=== PATIENT | male | born 1945 | race Caucasian/White ===

== ENCOUNTER → 2020-01-13 13:48 | Outpatient (CLI) | payer OTHER, SELFPAY ==
--- NOTE | 2020-01-13 | DI.ECHO.S_ITS ---
[facility] +---------+ : : [address] : : : : [address] : : : : [place], : : : : [place] [id number] : : : : Phone: [phone] + [facility]-0966 Echocardiogram Report + + :Name: KERRY BERNAL Study Date: 01/13/2020 Height: 73 in : :[facility] Exam Location: COUNT INCLUDES THE [facility] Weight: 212 lb : : Gender: Male BSA: 2.2 m2 : :: 1945 Age: 74 yrs BP: 140/80 mmHg: :Reason For Study: Post procedural state : :Ordering Physician: Mary Ellen Jaquez : :Chloé Performed By: Rebecca Page : :Referring: MARY ELLEN LUEVANO : + + Interpretation Summary 1) Normal left ventricular size, thickness, and systolic function (EF 60-65%). 2) The right ventricle is moderately dilated. Right ventricular systolic function is mildly reduced. 3) Severe biatrial enlargement. 4) Repaired mitral valve with trace mitral regurgitation 5) The right ventricular systolic pressure is estimated to be at least 29 mmHg based on an estimated right atrial pressure of 8 mm Hg. 6) Compared to the Echo done 08/25/2017, RV is more enlarged and has mildly reduced systolic function. Procedure: A two-dimensional transthoracic echocardiogram with color flow and Doppler was performed. The study quality was technically adequate. Comparison is made with the echocardiogram of 08/25/2017. The heart rate ranged between 59-97 bpm during the study. Left Ventricle: The left ventricle is normal in size and wall thickness. The ejection fraction is estimated to be 60-65%. Left ventricular systolic function is normal. There are no obvious focal wall motion abnormalities noted but poor endocardial definition reduces the sensitivity for the detection of such. Diastolic function could not be accurately assessed due to unobtainable data. Right Ventricle: The right ventricle is moderately dilated. Right ventricular systolic function is mildly reduced. Atria: Both atria are severely dilated. There is no Doppler evidence for an interatrial shunt. Mitral Valve: History of mitral valve repair. There is trace mitral regurgitation. Aortic Valve: The aortic valve is trileaflet. The aortic valve is mildly calcified. No aortic regurgitation is present. Tricuspid Valve: The tricuspid valve is normal in structure and function. There is trace tricuspid regurgitation. The right ventricular systolic pressure is estimated to be at least 29 mmHg based on an estimated right atrial pressure of 8 mm Hg. Pulmonic Valve: The pulmonic valve is not well visualized. Great Vessels: The aortic root is borderline dilated. The ascending aorta is mildly enlarged. The pulmonary artery is not well visualized, but is probably normal size. The IVC is dilated (diameter is greater than 2.1 cm) yet it collapses greater than 50% with a sniff. This suggests a right atrial pressure of 8 mm Hg. Pericardium/ Pleura There is no pericardial effusion. There is no pleural effusion. MMode/2D Measurements & Calculations LVIDd: 4.4 cm LVOT diam: 2.4 cm LVIDs: 2.7 cm Ao root diam: 4.0 cm IVSd: 0.86 cm asc Aorta Diam: 3.5 cm LVPWd: 0.97 cm LV marie. diameter/BSA (cm/m^2): 2.0 LV sys. diameter/BSA (cm/m^2): 1.2 FS: 39.8 % LA A2 area: 31.7 cm2 RA long axis: 7.0 cm LA A4 area: 38.7 cm2 RA area: 34.5 cm2 LA length (vol): 7.2 cm RA vol: 144.2 ml LA vol: 144.4 ml RA : 65.4 ml/m2 LA vol index: 65.5 ml/m2 RVD1 (basal): 6.0 cm IVC diam: 2.3 cm RVD2 (mid): 4.8 cm Doppler Measurements & Calculations Ao V2 max: 146.0 cm/sec LVOT Max Salvador: 104.0 cm/sec Ao V2 mean: 102.6 cm/sec LV V1 max P.3 mmHg Ao V2 VTI: 26.2 cm LV V1 VTI: 19.8 cm Ao max P.5 mmHg Ao mean P.7 mmHg EDITA(I,D): 3.6 cm2 TR max salvador: 229.3 cm/sec EDITA(V,D): 3.4 cm2 TR max P.0 mmHg EDITA indexed to BSA (cm^2/m^2): 1.6 sev ratio: 0.76 PA V2 max: 77.6 cm/sec SV(LVOT): 93.3 ml PA V2 mean: 51.5 cm/sec PA mean P.2 mmHg CARMELINA Accel Time: 0.07 sec Reading Physician:02:00 PM
[2020-01-13 14:59] LABS: Add Manual Diff / Slide Review NO; Basophils Absolute Auto 100 /uL (0-100); Basophils Percent Auto 0.9 % (0-2); Eosinophils Absolute Auto 200 /uL (0-450); Eosinophils Percent Auto 3.6 % (2-4); Hematocrit 44.4 % (41-53); Hemoglobin 15.6 g/dL (13.5-17.5); Lymphocytes Absolute Auto 1900 /uL (1100-4500); Lymphocytes Percent Auto 27.7 % (25-40); Mean Corpuscular HGB Conc 35.2 % (30-36); Mean Corpuscular Hemoglobin 32.5 PG (26-34); Mean Corpuscular Volume 92.4 fL (80-100); Monocytes Absolute Auto 700 /uL (0-900); Monocytes Percent Auto 10.4 % (3-14); Neutrophils Absolute Auto 3900 /uL (1500-7000); Neutrophils Percent Auto 57.4 % (50-75); Platelet Count 228 X10^3/uL (150-400); Red Blood Cell Count 4.81 X10^6/uL (4.5-5.9); Red Cell Distribution Width 13.3 % (11.6-14.8); White Blood Cell Count 6.8 X10^3/uL (4.5-11.0)
[2020-01-13 15:04] LABS: Blood Urea Nitrogen 18 mg/dL (9-20); Calcium 9.7 mg/dL (8.4-10.2); Carbon Dioxide 24 mmol/L (22-32); Chloride 104 mmol/L (98-107); Cholesterol 275 mg/dL (140-199); Estimated Glomerular Filt Rate > 60.0 mL/min (>60); Glucose 96 mg/dL (80-110); HDL Cholesterol 51 mg/dL (40-60); HEMOLYSIS < 15 (0-50); LDL Cholesterol Calculated 197 mg/dL (<100); Potassium 4.4 mmol/L (3.4-5.1); Sodium 137 mmol/L (137-145); Triglycerides 137 mg/dL (35-150)
[2020-01-13 16:25] LABS: TSH w/ Reflex to FT4 2.58 uIU/mL (0.47-4.68)
== END ==
PROVIDERS: PCP Student in an Organized Health Care Education/Training Program; Referring Provider Internal Medicine Cardiovascular Disease; Visit Provider Internal Medicine Cardiovascular Disease
DX: I51.7 Cardiomegaly (principal); I77.89 Other specified disorders of arteries and arterioles; R53.83 Other fatigue; I10 Essential (primary) hypertension; Z98.890 Other specified postprocedural states
CPT/HCPCS: 36415; 80048; 80061; 84443; 85025; 93306

== ENCOUNTER → 2020-08-18 09:51 | Outpatient (CLI) | payer OTHER, SELFPAY ==
[2020-08-18 11:36] LABS: COVID19 -Nasal RAPID Negative (Negative)
== END ==
PROVIDERS: PCP Student in an Organized Health Care Education/Training Program; Referring Provider Physician Assistant; Visit Provider Physician Assistant
DX: Z20.828 Contact with and (suspected) exposure to other viral communicable diseases (principal)
CPT/HCPCS: 87635

== ENCOUNTER → 2020-10-17 14:18 | Outpatient (CLI) | payer OTHER, SELFPAY ==
--- NOTE | 2020-10-17 14:20 | DI.CT.S_ITS ---
PROCEDURE: CT CHEST WO CON INDICATIONS: Follow-up incidental lung nodule TECHNIQUE: Noncontrast 2.0-2.5 mm thick sections acquired from the pulmonary apices to the posterior costophrenic angles. 7 mm thick axial MIP and 5 mm coronal and sagittal reformats were then acquired. A low radiation dose technique was utilized. COMPARISON: [facility], CR, XR CHEST 1 VIEW, 09/24/2020, 10:43. [facility], CR, XR CHEST 2 VIEWS, 09/24/2020, 15:18. FINDINGS: Image quality: Diagnostic, given the low radiation dose technique. Lungs and pleura: The nodular density in the right mid to lower lung zone seen on chest x-ray has no correlate on CT, most likely caused by an artifact. There are several small subcentimeter left lung nodules. Nodule 1: 3 mm; AMINA; series 3, image 104; solid. Nodule 2: 3 mm; LLL; series 3, image 135; ground-glass. Nodule 3: 2 mm; AMINA; series 3, image 79; solid Mediastinum: Heart size is mildly increased. Mild coronary artery calcification. No pericardial effusion. A cardiac pacemaker is noted. No mediastinal adenopathy by size criteria. Thoracic aorta and central pulmonary arteries are normal in size. Esophagus is normal in caliber. A tiny hiatal hernia. Bones and chest wall: No suspicious bony lesions. No vertebral body compression fractures. No axillary or supraclavicular adenopathy by size criteria. Thyroid gland is normal. Abdomen: Visualized upper abdomen solid organs and bowel loops appear normal in the absence of contrast. Degenerative changes in thoracic spine and upper lumbar spine. IMPRESSION: 1. The nodular density seen on chest x-ray is not visualized on CT, most likely caused by an artifact. 2. Tree subcentimeter nodules in left lung. Please see in close follow-up recommendation. 3. Mild cardiomegaly. 4. Mild coronary artery atherosclerosis. 5. Small hiatal hernia. Fleischner Society criteria for SOLID lung nodule followup. Nodule size (mm)Low-risk patientHigh-risk patient<6 (single or multiple)No routine followup.Optional CT at 12 months. 6-8 (single or multiple)CT at 6-12 months, then optional CT at 18-24 mo.CT at 6-12 months, then CT at 18-24 months. >8 (single)CT at 3 months, PET-CT, or biopsy. Same as for low-risk pts. >8 (multiple)CT at 3-6 months, then optional CT at 18-24 mo.CT at 3-6 months, then CT at 18-24 months. Fleischner Society criteria for SUB-SOLID lung nodule followup. Solitary pure ground-glass nodules<6 mm (ground glass or part solid)No followup needed. 6 mm or larger (ground glass)CT at 6-12 months to confirm persistence, then CT every 2 years until 5 years.6 mm or larger (part solid)CT at 3-6 months to confirm persistence, then annual CT until 5 years if unchanged and solid component remains <6 mm. Multiple sub-solid nodules<6 mmCT at 3-6 months, then CT consider at 2 & 4 years for high risk patients. [address] at 3-6 months. Subsequent management based on most suspicious lesions. Recommendations do not apply to lung cancer screening, patients with immunosuppression, or patients with known primary cancer. Dictated by: Mary Caballero M.D. on 10/17/2020 at 17:17 Approved by: Mary Caballero M.D. on 10/17/2020 at 17:27
== END ==
PROVIDERS: PCP Student in an Organized Health Care Education/Training Program; Referring Provider Student in an Organized Health Care Education/Training Program; Visit Provider Student in an Organized Health Care Education/Training Program
DX: R91.8 Other nonspecific abnormal finding of lung field (principal); I51.7 Cardiomegaly; I25.10 Atherosclerotic heart disease of native coronary artery without angina pectoris; K44.9 Diaphragmatic hernia without obstruction or gangrene
CPT/HCPCS: 71250

== ENCOUNTER → 2020-11-26 11:42 | Outpatient (CLI) | payer OTHER, SELFPAY ==
[2020-11-26 12:46] LABS: Add Manual Diff / Slide Review NO; Basophils Absolute Auto 100 /uL (0-100); Basophils Percent Auto 0.7 % (0-2); Eosinophils Absolute Auto 300 /uL (0-450); Hematocrit 44.4 % (41-53); Lymphocytes Absolute Auto 1700 /uL (1100-4500); Lymphocytes Percent Auto 21.7 % (25-40); Mean Corpuscular HGB Conc 33.9 % (30-36); Mean Corpuscular Hemoglobin 31.6 PG (26-34); Mean Corpuscular Volume 93.2 fL (80-100); Monocytes Absolute Auto 900 /uL (0-900); Monocytes Percent Auto 11.1 % (3-14); Neutrophils Absolute Auto 5000 /uL (1500-7000); Neutrophils Percent Auto 62.5 % (50-75); Platelet Count 216 X10^3/uL (150-400); Red Blood Cell Count 4.77 X10^6/uL (4.5-5.9); Red Cell Distribution Width 13.7 % (11.6-14.8)
[2020-11-26 13:06] LABS: BUN Creatinine Ratio 26.7 (6-22); Blood Urea Nitrogen 23 mg/dL (9-20); Calcium 10.3 mg/dL (8.4-10.2); Carbon Dioxide 27 mmol/L (22-32); Chloride 101 mmol/L (98-107); Cholesterol 202 mg/dL (140-199); Estimated Glomerular Filt Rate > 60.0 mL/min (>60); Glucose 105 mg/dL (80-110); HDL Cholesterol 81 mg/dL (40-60); HEMOLYSIS < 15 (0-50); LDL Cholesterol Calculated 102 mg/dL (<100); Sodium 135 mmol/L (137-145); Triglycerides 95 mg/dL (35-150)
[2020-11-26 13:07] LABS: Potassium 5.7 mmol/L (3.4-5.1)
== END ==
PROVIDERS: PCP Student in an Organized Health Care Education/Training Program; Referring Provider Internal Medicine Cardiovascular Disease; Visit Provider Internal Medicine Cardiovascular Disease
DX: I10 Essential (primary) hypertension (principal)
CPT/HCPCS: 36415; 80048; 80061; 85025

== ENCOUNTER → 2020-11-30 12:08 | Outpatient (CLI) | payer OTHER, SELFPAY ==
[2020-11-30 13:10] LABS: BUN Creatinine Ratio 25.9 (6-22); Blood Urea Nitrogen 22 mg/dL (9-20); Calcium 9.7 mg/dL (8.4-10.2); Carbon Dioxide 26 mmol/L (22-32); Chloride 103 mmol/L (98-107); Estimated Glomerular Filt Rate > 60.0 mL/min (>60); Glucose 99 mg/dL (80-110); HEMOLYSIS < 15 (0-50); Potassium 4.6 mmol/L (3.4-5.1); Sodium 136 mmol/L (137-145)
== END ==
PROVIDERS: PCP Student in an Organized Health Care Education/Training Program; Referring Provider Internal Medicine Cardiovascular Disease; Visit Provider Internal Medicine Cardiovascular Disease
DX: I10 Essential (primary) hypertension (principal)
CPT/HCPCS: 36415; 80048

== ENCOUNTER → 2021-07-02 13:58 | Outpatient (CLI) | payer OTHER, SELFPAY ==
--- NOTE | 2021-07-02 13:59 | DI.ECHO.S_ITS ---
[facility] +---------+ : : [address] : : : : [address] : : : : [id number] : : : : Phone: [phone] : : [phone]---------+ Echocardiogram Report + + :Name: KERRY BERNAL Study Date: 07/02/2021 Height: 72 in : :[facility] ReadingLocation: Weight: 210 lb : : Gender: Male BSA: 2.2 m2 : :: 1945 Age: 75 yrs BP: 180/86 mmHg: :Reason For Study: POSTPROCEDURAL STATES : :Ordering Physician: WEI, : :MARY ELLEN Performed By: Isabelle Cheek : :Referring: MARY ELLEN LUEVANO : + + Interpretation Summary 1) Normal left ventricular size, thickness, and systolic function (EF 55-60%). 2) The right ventricle is mildly dilated. Right ventricular systolic function is mildly reduced. There is a pacemaker lead in the right ventricle. 3) Severe left atrial enlargement. 4) Repaired mitral valve with trace mitral regurgitation 5) Right ventricular systolic pressure is estimated to be 29 mmHg plus the clinically estimated CVP which cannot be estimated on this exam. 6) Compared to the Echo done 01/13/2020, no significant change. Procedure: A two-dimensional transthoracic echocardiogram with color flow and Doppler was performed. The study quality was technically adequate. Comparison is made with the echocardiogram of 01/13/2020. The patient was in sinus rhythm with heart rates between 60-70 bpm during the exam. Left Ventricle: Proximal septal thickening is noted. The left ventricle is normal in size. The ejection fraction is estimated to be 55-60%. Septal motion is consistent with post-operative state. Right Ventricle: There is a pacemaker lead in the right ventricle. The right ventricle is mildly dilated. Right ventricular systolic function is mildly reduced. Atria: The left atrium is severely dilated. The right atrium is moderately dilated. There is no Doppler evidence for an interatrial shunt. Mitral Valve: History of mitral valve repair. There is no mitral valve stenosis. There is trace mitral regurgitation. Aortic Valve: The aortic valve is mildly calcified. The aortic valve is trileaflet. There is no aortic valve stenosis. There is trace aortic regurgitation. Tricuspid Valve: The tricuspid valve is normal in structure and function. There is mild tricuspid regurgitation. Right ventricular systolic pressure is estimated to be 29 mmHg plus the clinically estimated CVP which cannot be estimated on this exam. Pulmonic Valve: The pulmonic valve is not well visualized. There is no pulmonic valvular regurgitation. Great Vessels: The ascending aorta is mildly enlarged. The inferior vena cava was not well visualized. Pericardium/ Pleura There is no pericardial effusion. There is no pleural effusion. MMode/2D Measurements & Calculations LVIDd: 5.1 cm LVOT diam: 2.2 cm LVIDs: 3.3 cm asc Aorta Diam: 3.7 cm FS: 35.7 % Ao Arch Diam (Prox Trans): 3.3 cm IVSd: 0.94 cm LVPWd: 1.00 cm LV marie. diameter/BSA (cm/m^2): 2.3 LV sys. diameter/BSA (cm/m^2): 1.5 LA A2 area: 30.8 cm2 RA long axis: 6.1 cm LA A4 area: 34.0 cm2 RA area: 24.9 cm2 LA length (vol): 6.9 cm RA vol: 86.5 ml LA vol: 129.5 ml RA : 39.7 ml/m2 LA vol index: 59.5 ml/m2 RVD1 (basal): 4.8 cm TAPSE: 1.9 cm Doppler Measurements & Calculations Ao V2 max: 114.3 cm/sec LVOT Max Salvador: 88.8 cm/sec Ao V2 mean: 79.9 cm/sec LV V1 max P.2 mmHg Ao max P.2 mmHg LV V1 VTI: 21.7 cm Ao mean P.9 mmHg EDITA(I,D): 3.5 cm2 Ao V2 VTI: 22.9 cm EDITA(V,D): 2.8 cm2 sev ratio: 0.95 EDITA indexed to BSA (cm^2/m^2): 1.6 MV E max salvador: 148.6 cm/sec TR max salvador: 268.8 cm/sec MV A max salvador: 119.7 cm/sec TR max P.9 mmHg MV E/A: 1.2 PA V2 max: 85.0 cm/sec Med Peak E' Salvador: 6.9 cm/sec PA V2 mean: 60.2 cm/sec E/E' med: 21.6 PA mean P.6 mmHg Lat Peak E' Salvador: 6.7 cm/sec PA pr(Accel): 44.7 mmHg E/E' lat: 22.1 E/e' average: 21.8 MV dec time: 0.32 sec MVA(VTI): 1.3 cm2 MV V2 mean: 88.6 cm/sec SV(LVOT): 79.5 ml MV mean P.7 mmHg MV V2 VTI: 60.7 cm Reading Physician:04:43 PM
[2021-07-02 17:13] LABS: Add Manual Diff / Slide Review NO; Basophils Absolute Auto 100 /uL (0-100); Eosinophils Absolute Auto 200 /uL (0-450); Eosinophils Percent Auto 3.3 % (2-4); Hematocrit 42.9 % (41-53); Hemoglobin 14.7 g/dL (13.5-17.5); Lymphocytes Absolute Auto 1900 /uL (1100-4500); Lymphocytes Percent Auto 26.9 % (25-40); Mean Corpuscular HGB Conc 34.2 % (30-36); Mean Corpuscular Hemoglobin 31.8 PG (26-34); Monocytes Absolute Auto 800 /uL (0-900); Monocytes Percent Auto 11.7 % (3-14); Neutrophils Absolute Auto 4100 /uL (1500-7000); Neutrophils Percent Auto 57.1 % (50-75); Platelet Count 255 X10^3/uL (150-400); Red Blood Cell Count 4.62 X10^6/uL (4.5-5.9); Red Cell Distribution Width 12.8 % (11.6-14.8); White Blood Cell Count 7.1 X10^3/uL (4.5-11.0)
[2021-07-02 17:36] LABS: BUN Creatinine Ratio 17.5 (6-22); Blood Urea Nitrogen 17 mg/dL (9-20); Carbon Dioxide 30 mmol/L (22-32); Chloride 103 mmol/L (98-107); Estimated Glomerular Filt Rate > 60.0 mL/min (>60); Glucose 92 mg/dL (80-110); HEMOLYSIS < 15 (0-50); Potassium 5.3 mmol/L (3.4-5.1); Sodium 139 mmol/L (137-145)
== END ==
PROVIDERS: PCP Student in an Organized Health Care Education/Training Program; Referring Provider Internal Medicine Cardiovascular Disease; Visit Provider Internal Medicine Cardiovascular Disease
DX: I34.0 Nonrheumatic mitral (valve) insufficiency (principal); I77.89 Other specified disorders of arteries and arterioles; I10 Essential (primary) hypertension; Z98.890 Other specified postprocedural states; Z95.0 Presence of cardiac pacemaker
CPT/HCPCS: 36415; 80048; 85025; 93306

== ENCOUNTER → 2021-12-19 15:38 | Outpatient (CLI) | payer OTHER, SELFPAY ==
[2021-12-19 17:10] LABS: Add Manual Diff / Slide Review NO; Basophils Absolute Auto 100 /uL (0-100); Basophils Percent Auto 0.9 % (0-2); Eosinophils Absolute Auto 700 /uL (0-450); Eosinophils Percent Auto 8.4 % (2-4); Hematocrit 41.3 % (41-53); Hemoglobin 14.2 g/dL (13.5-17.5); Lymphocytes Absolute Auto 1700 /uL (1100-4500); Lymphocytes Percent Auto 20.4 % (25-40); Mean Corpuscular HGB Conc 34.3 % (30-36); Mean Corpuscular Hemoglobin 31.3 PG (26-34); Mean Corpuscular Volume 91.3 fL (80-100); Monocytes Absolute Auto 800 /uL (0-900); Monocytes Percent Auto 10.3 % (3-14); Neutrophils Absolute Auto 4900 /uL (1500-7000); Platelet Count 233 X10^3/uL (150-400); Red Blood Cell Count 4.52 X10^6/uL (4.5-5.9); Red Cell Distribution Width 13.3 % (11.6-14.8); White Blood Cell Count 8.2 X10^3/uL (4.5-11.0)
[2021-12-19 17:20] LABS: Blood Urea Nitrogen 18 mg/dL (9-20); Calcium 8.7 mg/dL (8.4-10.2); Carbon Dioxide 26 mmol/L (22-32); Chloride 107 mmol/L (98-107); Estimated Glomerular Filt Rate > 60 mL/min (>60); Glucose 97 mg/dL (80-110); Potassium 4.1 mmol/L (3.4-5.1); Sodium 139 mmol/L (137-145)
[2021-12-19 17:31] LABS: HEMOLYSIS 60 (0-50)
== END ==
PROVIDERS: PCP Student in an Organized Health Care Education/Training Program; Referring Provider Internal Medicine Cardiovascular Disease; Visit Provider Internal Medicine Cardiovascular Disease
DX: I48.3 Typical atrial flutter (principal)
CPT/HCPCS: 36415; 80048; 85025

== ENCOUNTER → 2022-09-26 10:47 | Outpatient (CLI) | payer OTHER, SELFPAY ==
[2022-09-26 12:19] LABS: Add Manual Diff / Slide Review NO; Basophils Absolute Auto 100 /uL (0-100); Basophils Percent Auto 1.6 % (0-2); Eosinophils Absolute Auto 400 /uL (0-450); Eosinophils Percent Auto 5.1 % (2-4); Hematocrit 40.4 % (41-53); Hemoglobin 13.6 g/dL (13.5-17.5); Lymphocytes Absolute Auto 2000 /uL (1100-4500); Lymphocytes Percent Auto 23.8 % (25-40); Mean Corpuscular HGB Conc 33.6 % (30-36); Mean Corpuscular Hemoglobin 30.4 PG (26-34); Mean Corpuscular Volume 90.5 fL (80-100); Monocytes Absolute Auto 1100 /uL (0-900); Monocytes Percent Auto 13.1 % (3-14); Neutrophils Absolute Auto 4700 /uL (1500-7000); Neutrophils Percent Auto 56.4 % (50-75); Platelet Count 262 X10^3/uL (150-400); Red Blood Cell Count 4.47 X10^6/uL (4.5-5.9); Red Cell Distribution Width 13.8 % (11.6-14.8); White Blood Cell Count 8.2 X10^3/uL (4.5-11.0)
[2022-09-26 12:29] LABS: Blood Urea Nitrogen 17 mg/dL (9-20); Calcium 9.2 mg/dL (8.4-10.2); Carbon Dioxide 27 mmol/L (22-32); Chloride 105 mmol/L (98-107); Cholesterol 182 mg/dL (140-199); Estimated Glomerular Filt Rate > 60 mL/min (>60); Glucose 101 mg/dL (80-110); HDL Cholesterol 52 mg/dL (40-60); HEMOLYSIS < 15 (0-50); LDL Cholesterol Calculated 103 mg/dL (<100); Potassium 5.1 mmol/L (3.4-5.1); Sodium 140 mmol/L (137-145); Triglycerides 135 mg/dL (35-150)
[2022-09-26 13:02] LABS: TSH w/ Reflex to FT4 2.71 uIU/mL (0.47-4.68)
== END ==
PROVIDERS: PCP Student in an Organized Health Care Education/Training Program; Referring Provider Internal Medicine Cardiovascular Disease; Visit Provider Internal Medicine Cardiovascular Disease
DX: I10 Essential (primary) hypertension (principal); E78.5 Hyperlipidemia, unspecified; R53.83 Other fatigue
CPT/HCPCS: 36415; 80048; 80061; 84443; 85025

== ENCOUNTER → 2022-11-26 09:58 | Outpatient (CLI) | payer OTHER, SELFPAY ==
--- NOTE | 2022-11-27 00:25 | DI.NM.S_ITS ---
DATE OF SERVICE: 11/26/2022 PROCEDURE: Pharmacologic stress and rest myocardial perfusion imaging with gating to assess ejection fraction and regional wall motion. ORDERING PROVIDER: Lucila Luevano MD INDICATIONS: The patient is a 77-year-old male status post mitral valve replacement and atrial flutter with recent exertional dyspnea and lightheadedness. CARDIAC STRESS: Per protocol, 0.4 mg of regadenoson was infused, augmented by walking at 1.0 mph at 0% grade. With this, the patient had a normal hemodynamic response and denied any cardiac symptoms. His blood pressures remained in the 150 to 175 range. His resting ECG showed ventricular pacing with underlying atrial fibrillation. At the beginning of stress, he had occasional hughes conduction with a heart rate up to 62 BPM. With further stress, he had a peak heart rate of 120 BPM with ventricular pacing. The ventricular pacing precludes any assessment of ST-segment analysis. There were no other arrhythmias. Per protocol, 25.0 millicuries of technetium-99m Myoview was injected and he was imaged 10 minutes later using a gated SPECT acquisition protocol. Earlier in the day while at rest, he was injected with 12.0 millicuries of technetium- 99m Myoview and was imaged 15 minutes later, again using a gated SPECT acquisition protocol. FINDINGS: 1. Raw data: There is fairly good myocardial tracer uptake. The lung/heart ratio is normal at 0.36 with a normal TID ratio of 1.01. 2. Quantitated gated SPECT: Post-stress ejection fraction is 66% without any focal wall motion abnormality, although there is slight medial motion of the heart consistent with previous cardiac surgery. The resting images show an identical contraction pattern with an ejection fraction of 59% and visually appears identical to the stress images. Resting end-diastolic volume is mildly increased at 169 mL. 3. Myocardial perfusion imaging: Post-stress supine images show a fairly normal myocardial perfusion pattern with only very subtle reduced tracer activity in the mid to distal inferior wall and near the apex that completely resolves on prone imaging, suggesting attenuation artifact. The resting images show an identical perfusion pattern without any areas of improvement. IMPRESSION: 1. Normal myocardial perfusion study for ischemia. 2. Subtle inferior defect that resolves on prone imaging, most consistent with diaphragmatic attenuation. There is no evidence for myocardial ischemia or previous myocardial infarction. 3. Normal left ventricular systolic function without focal wall motion abnormality and mildly increased left ventricular volumes. 4. Atrial fibrillation with a predominantly ventricular paced rhythm with occasional hughes conduction. He had a normal heart rate and blood pressure response to exercise. Melany Boothe - RICKEY/aundrea/andreina doc#: [id number]/job#: [id number] dd: 11/26/2022 16:16:00 dt: 11/27/2022 00:07:00 DICTATING MD/COPIES TO: Ki Baker MD; Lucila Luevano MD COPIES MNE: GALILEO;
== END ==
PROVIDERS: PCP Student in an Organized Health Care Education/Training Program; Referring Provider Internal Medicine Cardiovascular Disease; Visit Provider Internal Medicine Cardiovascular Disease
DX: R06.09 Other forms of dyspnea (principal); I48.92 Unspecified atrial flutter; R42 Dizziness and giddiness; Z95.2 Presence of prosthetic heart valve
CPT/HCPCS: 78452; 93017; A9502; J2785

== ENCOUNTER → 2023-02-13 10:37 | Outpatient (CLI) | payer OTHER, SELFPAY ==
[2023-02-13 11:24] LABS: Alanine Aminotransferase 29 IU/L (<50); Albumin 4.1 g/dL (3.5-5.0); Albumin Globulin Ratio 1.5 (1.0-2.8); Alkaline Phosphatase 76 U/L (38-126); Aspartate Aminotransferase 26 IU/L (17-59); Bilirubin Total 0.4 mg/dL (0.2-1.3); Blood Urea Nitrogen 18 mg/dL (9-20); Calcium 9.4 mg/dL (8.4-10.2); Carbon Dioxide 25 mmol/L (22-32); Chloride 104 mmol/L (98-107); Estimated Glomerular Filt Rate > 60 mL/min (>60); Globulin 2.7 g/dL (1.7-4.1); Glucose 104 mg/dL (80-110); HEMOLYSIS < 15 (0-50); Potassium 4.6 mmol/L (3.4-5.1); Sodium 138 mmol/L (137-145); Total Protein 6.8 g/dL (6.3-8.2)
== END ==
PROVIDERS: PCP Student in an Organized Health Care Education/Training Program; Referring Provider Internal Medicine Cardiovascular Disease; Visit Provider Internal Medicine Cardiovascular Disease
DX: I48.19 Other persistent atrial fibrillation (principal)
CPT/HCPCS: 36415; 80053

== ENCOUNTER → 2023-04-11 09:45 | Outpatient (CLI) | payer OTHER, SELFPAY ==
[2023-04-11 11:09] LABS: Add Manual Diff / Slide Review NO; Basophils Absolute Auto 100 /uL (0-100); Eosinophils Absolute Auto 400 /uL (0-450); Eosinophils Percent Auto 5.3 % (2-4); Hematocrit 37.5 % (41-53); Hemoglobin 12.8 g/dL (13.5-17.5); Lymphocytes Absolute Auto 2000 /uL (1100-4500); Lymphocytes Percent Auto 23.7 % (25-40); Mean Corpuscular HGB Conc 34.1 % (30-36); Mean Corpuscular Volume 87.9 fL (80-100); Monocytes Absolute Auto 1000 /uL (0-900); Monocytes Percent Auto 11.3 % (3-14); Neutrophils Absolute Auto 5000 /uL (1500-7000); Neutrophils Percent Auto 58.7 % (50-75); Platelet Count 265 X10^3/uL (150-400); Red Blood Cell Count 4.27 X10^6/uL (4.5-5.9); Red Cell Distribution Width 15.6 % (11.6-14.8); White Blood Cell Count 8.5 X10^3/uL (4.5-11.0)
[2023-04-11 11:27] LABS: BUN Creatinine Ratio 17.9 (6-22); Blood Urea Nitrogen 17 mg/dL (9-20); Calcium 9.2 mg/dL (8.4-10.2); Carbon Dioxide 25 mmol/L (22-32); Chloride 104 mmol/L (98-107); Estimated Glomerular Filt Rate > 60 mL/min (>60); Glucose 119 mg/dL (80-110); HEMOLYSIS < 15 (0-50); Potassium 4.7 mmol/L (3.4-5.1); Sodium 136 mmol/L (137-145)
== END ==
PROVIDERS: PCP Student in an Organized Health Care Education/Training Program; Referring Provider Internal Medicine Cardiovascular Disease; Visit Provider Internal Medicine Cardiovascular Disease
DX: I48.0 Paroxysmal atrial fibrillation (principal)
CPT/HCPCS: 36415; 80048; 85025

== ENCOUNTER → 2023-06-08 11:16 | Outpatient (CLI) | payer OTHER, SELFPAY ==
[2023-06-08 12:24] LABS: Add Manual Diff / Slide Review NO; Basophils Absolute Auto 100 /uL (0-100); Eosinophils Absolute Auto 400 /uL (0-450); Eosinophils Percent Auto 4.7 % (2-4); Hematocrit 37.7 % (41-53); Hemoglobin 12.5 g/dL (13.5-17.5); Lymphocytes Absolute Auto 1800 /uL (1100-4500); Lymphocytes Percent Auto 23.3 % (25-40); Mean Corpuscular HGB Conc 33.1 % (30-36); Mean Corpuscular Hemoglobin 28.1 PG (26-34); Mean Corpuscular Volume 84.9 fL (80-100); Monocytes Absolute Auto 900 /uL (0-900); Monocytes Percent Auto 11.3 % (3-14); Neutrophils Absolute Auto 4600 /uL (1500-7000); Neutrophils Percent Auto 59.7 % (50-75); Platelet Count 283 X10^3/uL (150-400); Red Blood Cell Count 4.43 X10^6/uL (4.5-5.9); White Blood Cell Count 7.6 X10^3/uL (4.5-11.0)
[2023-06-08 12:56] LABS: BUN Creatinine Ratio 17.2 (6-22); Blood Urea Nitrogen 17 mg/dL (9-20); Calcium 9.7 mg/dL (8.4-10.2); Carbon Dioxide 25 mmol/L (22-32); Chloride 105 mmol/L (98-107); Estimated Glomerular Filt Rate > 60 mL/min (>60); Glucose 115 mg/dL (80-110); HEMOLYSIS < 15 (0-50); Potassium 4.6 mmol/L (3.4-5.1); Sodium 135 mmol/L (137-145)
== END ==
PROVIDERS: PCP Student in an Organized Health Care Education/Training Program; Referring Provider Internal Medicine Cardiovascular Disease; Visit Provider Internal Medicine Cardiovascular Disease
DX: I48.0 Paroxysmal atrial fibrillation (principal)
CPT/HCPCS: 36415; 80048; 85025

== ENCOUNTER → 2024-08-10 15:51 | Outpatient (CLI) | payer OTHER, SELFPAY ==
[2024-08-10 17:43] LABS: Add Manual Diff / Slide Review NO; Basophils Absolute Auto 100 /uL (0-100); Basophils Percent Auto 1.3 % (0-2); Eosinophils Absolute Auto 200 /uL (0-450); Eosinophils Percent Auto 2.3 % (2-4); Hematocrit 47.2 % (41-53); Hemoglobin 16.1 g/dL (13.5-17.5); Lymphocytes Absolute Auto 2200 /uL (1100-4500); Lymphocytes Percent Auto 22.7 % (25-40); Mean Corpuscular HGB Conc 34.1 % (30-36); Mean Corpuscular Hemoglobin 32.5 PG (26-34); Mean Corpuscular Volume 95.3 fL (80-100); Monocytes Absolute Auto 1000 /uL (0-900); Monocytes Percent Auto 10.3 % (3-14); Neutrophils Absolute Auto 6200 /uL (1500-7000); Neutrophils Percent Auto 63.4 % (50-75); Platelet Count 255 X10^3/uL (150-400); Red Blood Cell Count 4.95 X10^6/uL (4.5-5.9); Red Cell Distribution Width 13.9 % (11.6-14.8); White Blood Cell Count 9.8 X10^3/uL (4.5-11.0)
[2024-08-10 18:45] LABS: Prostate Specific Antigen Scrn < 0.064 ng/mL (0.1-4.0)
== END ==
PROVIDERS: PCP Family Medicine; Referring Provider Internal Medicine Cardiovascular Disease; Visit Provider Internal Medicine Cardiovascular Disease
DX: Z12.5 Encounter for screening for malignant neoplasm of prostate (principal); I48.19 Other persistent atrial fibrillation
CPT/HCPCS: 36415; 85025; G0103

== ENCOUNTER → 2024-09-05 15:44 | Outpatient (CLI) | payer OTHER, SELFPAY ==
--- NOTE | 2024-09-05 15:45 | DI.CT.S_ITS ---
PROCEDURE: CT CHEST WO CON INDICATIONS: follow-up left lung nodule TECHNIQUE: Noncontrast 5 mm thick sections acquired from the pulmonary apices to the posterior costophrenic angles. 1 mm lung window, 5 mm thick coronal and sagittal and 7 mm axial MIP reformats were then acquired. For radiation dose reduction, the following was used: automated exposure control, adjustment of mA and/or kV according to patient size. COMPARISON: [facility], CT, CT ANGIO CHEST, 06/03/2023, 10:19. [facility], CT, CT CHEST WO CON, 10/17/2020, 14:30. FINDINGS: Image quality: Diagnostic. Lungs and Pleura: Mild centrilobular emphysematous changes. Occasional calcified and noncalcified micro nodules too small to measure. No suspicious solid or ground-glass lung nodule. No consolidation, effusion, or reticular opacity. No pleural effusion or calcification. Central and peripheral airways are normal without bronchial wall thickening or bronchiectasis. . Lower Neck: No enlarged lymph nodes. Thyroid: Normal CT appearance. Axillae: No enlarged lymph nodes. Chest Wall: Left upper chest wall pacemaker. Median sternotomy changes. Bones: Smooth bridging syndesmophytes throughout the thoracic spine. No suspicious bone lesions. Heart: Mild cardiomegaly. Mitral annuloplasty. Pacemaker leads in place. Minor coronary artery calcification. Thoracic Vessels: The aorta and pulmonary arteries demonstrate normal size. Mediastinum and Jesika: No enlarged lymph nodes. Esophagus: No wall thickening. No hiatal hernia. Upper Abdomen: Chronic nonspecific hypodensity in the posterior right hepatic lobe. Visible portions of upper abdominal organs are otherwise normal. IMPRESSION: No significant growth of any nodule compared to CT from 10/17/20. Micro nodules appear benign. Mild cardiomegaly and prior cardiac surgery. Dictated by: Corine Silva M.D. on 09/06/2024 at 14:05 Approved by: Corine Silva M.D. on 09/06/2024 at 14:17
== END ==
PROVIDERS: PCP Family Medicine; Referring Provider Family Medicine; Visit Provider Family Medicine
DX: R91.1 Solitary pulmonary nodule (principal); I51.7 Cardiomegaly; Z95.0 Presence of cardiac pacemaker
CPT/HCPCS: 71250

== ENCOUNTER → 2024-12-29 14:37 | Outpatient (CLI) | payer OTHER, SELFPAY ==
[2024-12-29 14:59] LABS: Add Manual Diff / Slide Review NO; Basophils Absolute Auto 100 /uL (0-100); Eosinophils Absolute Auto 100 /uL (0-450); Eosinophils Percent Auto 1.6 % (2-4); Hematocrit 43.9 % (41-53); Hemoglobin 15.3 g/dL (13.5-17.5); Lymphocytes Absolute Auto 1800 /uL (1100-4500); Lymphocytes Percent Auto 21.6 % (25-40); Mean Corpuscular HGB Conc 34.9 % (30-36); Mean Corpuscular Hemoglobin 32.8 PG (26-34); Mean Corpuscular Volume 94.2 fL (80-100); Monocytes Absolute Auto 600 /uL (0-900); Monocytes Percent Auto 6.7 % (3-14); Neutrophils Absolute Auto 5800 /uL (1500-7000); Neutrophils Percent Auto 69.1 % (50-75); Platelet Count 237 X10^3/uL (150-400); Red Blood Cell Count 4.66 X10^6/uL (4.5-5.9); Red Cell Distribution Width 13.3 % (11.6-14.8); White Blood Cell Count 8.3 X10^3/uL (4.5-11.0)
[2024-12-29 17:36] LABS: BUN Creatinine Ratio 21.4 (6-22); Blood Urea Nitrogen 21 mg/dL (9-20); Calcium 9.6 mg/dL (8.4-10.2); Carbon Dioxide 23 mmol/L (22-32); Chloride 104 mmol/L (98-107); Estimated Glomerular Filt Rate > 60 mL/min (>60); Glucose 123 mg/dL (70-99); HEMOLYSIS 21 (0-50); Potassium 4.2 mmol/L (3.4-5.1); Sodium 136 mmol/L (137-145)
== END ==
PROVIDERS: PCP Family Medicine; Referring Provider Family Medicine; Visit Provider Family Medicine
DX: I48.19 Other persistent atrial fibrillation (principal)
CPT/HCPCS: 36415; 80048; 85025